=== PATIENT | male | born 1970 | race Caucasian/White ===

== ENCOUNTER 2022-02-23 08:04 | Outpatient (CLI) | payer BC | END 2022-02-23 08:05 | disposition home or self-care (01) | LOC: TBSIIMAG 08:04 | PROVIDERS: ATTEND Surgery | DX: M48.062 Spinal stenosis, lumbar region with neurogenic claudication (principal); M51.26 Other intervertebral disc displacement, lumbar region; M51.27 Other intervertebral disc displacement, lumbosacral region | CPT/HCPCS: 72148 ==

== ENCOUNTER 2022-04-16 16:41 | Outpatient (CLI) | payer BC ==
[2022-04-16 17:40] LABS: Hemoglobin 15.4 g/dL (13.5-17.5); Mean Corpuscular HGB CONC 34.5 g/dL (32.0-36.0); Mean Corpuscular Hemoglobin 30.4 pg (27.0-33.0); Mean Corpuscular Volume 88.1 fl (81.2-95.1); Mean Platelet Volume 9.4 fl (7.4-10.4); Platelet Count 211 10x3/uL (150-450); RBC Distribution Width 12.3 % (11.5-14.5); Red Blood Cell (RBC) Count 5.06 10x6/uL (4.32-5.72); White Blood Cell (WBC) Count 9.4 10x3/uL (3.5-10.5)
[2022-04-16 17:52] LABS: Anion Gap 12 mmol/L (10-20); BUN (Urea Nitrogen) 15 mg/dL (8.4-25.7); Calc. Creatinine Clearance 0 mL/min (70-130); Calcium 9.5 mg/dL (7.8-10.44); Carbon Dioxide 24 mmol/L (22-29); Chloride 102 mmol/L (98-107); Estimated GFR 93; Glucose 101 mg/dL (70-105); PTT 25.9 sec (22.0-33.0); Potassium 4.3 mmol/L (3.5-5.1); Prothrombin Time 10.8 sec (9.5-12.1); Sodium 134 mmol/L (136-145)
== END 2022-04-16 16:42 | disposition home or self-care (01) ==
LOC: LABBT 16:41
PROVIDERS: ATTEND Surgery
DX: Z01.818 Encounter for other preprocedural examination (principal); M54.16 Radiculopathy, lumbar region; M48.062 Spinal stenosis, lumbar region with neurogenic claudication; Z20.822 Contact with and (suspected) exposure to COVID-19
CPT/HCPCS: 80048; 85027; 85610; 85730; 87811; 93005; 93010

== ENCOUNTER 2022-04-19 06:04 | Observation (INO) | payer BC ==
[2022-04-17 11:23] VITALS: BMI 29.2
[2022-04-19] MEDS ORDERED: Levofloxacin 500 mg/D5W 100 ml Premix Bag ONE (06:24)
[2022-04-19] MEDS ORDERED: Thrombin 5000 UNITS/5 ML VIAL ONE (06:25)
[2022-04-19] MEDS ORDERED: Propofol 500 MG/50 ML VIAL ONE (07:00)
[2022-04-19] MEDS ORDERED: HYDROmorphone 2 MG/ML VIAL ONE ×2 (07:00→11:46)
[2022-04-19] MEDS ORDERED: Clindamycin/D5W 900 mg/50 ml Premix Bag ONE (07:08)
[2022-04-19] MEDS ORDERED: Rocuronium Bromide 10 MG/ML (10ML VIAL) ONE (08:00)
[2022-04-19] MEDS ORDERED: Esmolol 100 MG/10 ML VIAL ONE (08:00)
[2022-04-19] MEDS ORDERED: Ondansetron PF 4 MG/2 ML Vial ONE (08:00)
[2022-04-19] MEDS ORDERED: Ketorolac Tromethamine 30 MG/ML VIAL ONE (08:00)
[2022-04-19] MEDS ORDERED: Glycopyrrolate 0.2 MG/ML 5 ML SYRINGE ONE (08:00)
[2022-04-19] MEDS ORDERED: Dexamethasone 20 MG/5 ML VIAL ONE (08:00)
[2022-04-19] MEDS ORDERED: ePHEDrine Sulfate 50 MG/10 ML VIAL ONE (08:00)
[2022-04-19] MEDS ORDERED: PROPOFOL 200 MG/20 ML VIAL ONE (08:00)
[2022-04-19] MEDS ORDERED: Lidocaine 1% PF 5 ML VIAL ONE (08:00)
[2022-04-19] MEDS ORDERED: HYDROmorphone 2 MG/ML VIAL SLOW IVP PRN (09:22)
[2022-04-19] MEDS ORDERED: Meperidine HCl/PF 25 MG/ML VIAL SLOW IVP PRN (09:22)
[2022-04-19] MEDS ORDERED: Promethazine HCl 25 MG/ML VIAL IVPB PRN (09:22)
[2022-04-19] MEDS ORDERED: Morphine 2 MG/ML VIAL SLOW IVP PRN (09:33)
[2022-04-19] MEDS ORDERED: traMADol HCl 50 MG TAB PO PRN (09:33)
[2022-04-19] MEDS ORDERED: Acetaminophen 325 MG TAB PO PRN (09:33)
[2022-04-19] MEDS ORDERED: Acetaminophen/Codeine 30-300mg Tablet PO PRN (09:33)
[2022-04-19] MEDS ORDERED: Ondansetron PF 4 MG/2 ML Vial IVP PRN (09:33)
[2022-04-19] MEDS ORDERED: hydrALAZINE 20 MG/ML VIAL SLOW IVP PRN (09:37)
[2022-04-19] MEDS ORDERED: Cyclobenzaprine 10 MG TAB PO PRN (09:39)
[2022-04-19] MEDS ORDERED: Fentanyl 100 MCG/2 ML VIAL ONE ×3 (09:43→10:23)
[2022-04-19] MEDS ORDERED: Clindamycin/D5W 900 MG in Premix Bag 1 BAG IVPB SCH (09:45)
[2022-04-19] MEDS: Sodium Chloride 0.9% 1,000 ML IV SCH ×2 (13:36→19:52)
[2022-04-19] MEDS: Clindamycin/D5W 900 MG in Premix Bag 1 BAG IVPB SCH (15:24)
[2022-04-19] MEDS: HYDROcodone/Acetaminophen 7.5/325 mg Tablet PO PRN (15:25)
[2022-04-20] MEDS: HYDROcodone/Acetaminophen 7.5/325 mg Tablet PO PRN ×2 (00:02→09:14)
[2022-04-20] MEDS: Clindamycin/D5W 900 MG in Premix Bag 1 BAG IVPB SCH (00:02)
[2022-04-20 08:01] VITALS: BP 145/79; TEMP 98.2
[2022-04-20] MEDS ORDERED: Losartan 25 MG TAB PO SCH (09:00)
[2022-04-20] MEDS ORDERED: LISDEXAMFETAMINE DIMESYLATE 40 MG PO SCH (09:00)
== END 2022-04-20 09:42 | disposition home or self-care (01) ==
LOC: SDC 06:04 → SURG A 13:19
PROVIDERS: ADMIT Surgery; ATTEND Surgery
PROC: 01NB0ZZ Release Lumbar Nerve, Open Approach (ICD-10-PCS; principal; 2022-04-19)
DX: M48.062 Spinal stenosis, lumbar region with neurogenic claudication (principal); M54.16 Radiculopathy, lumbar region; F17.290 Nicotine dependence, other tobacco product, uncomplicated; Z79.899 Other long term (current) drug therapy; Z88.0 Allergy status to penicillin; Z98.1 Arthrodesis status
CPT/HCPCS: 76000; 96365; 96376; G0378; J1100; J1170; J1885; J1956; J2405; J2704; J2710; J3010; J3370; J3490

== ENCOUNTER 2022-10-29 08:09 | Outpatient (CLI) | payer BC | END 2022-10-29 08:10 | disposition home or self-care (01) | LOC: TBSIIMAG 08:09 | PROVIDERS: ATTEND Surgery | DX: M47.26 Other spondylosis with radiculopathy, lumbar region (principal); M48.061 Spinal stenosis, lumbar region without neurogenic claudication; Z98.890 Other specified postprocedural states | CPT/HCPCS: 72100; 72148 ==